=== PATIENT | female | born 1965 | race Caucasian/White ===

== ENCOUNTER 2022-05-27 15:35 | Outpatient (REF) | payer OTHER, SELFPAY ==
[2022-05-27 18:27] LABS: Uric Acid 7.5 mg/dL (2.4-5.7)
== END 2022-05-27 15:36 | disposition home or self-care (01) ==
LOC: HO.MANLDS 15:35
PROVIDERS: Visit Provider Physician Assistant
DX: M10.041 Idiopathic gout, right hand (principal)
CPT/HCPCS: 36415; 84550

== ENCOUNTER 2023-02-12 10:40 | Outpatient (REF) | payer OTHER, SELFPAY ==
[2023-02-15 13:18] LABS: Thyroglobulin Antibodies <1 IU/mL (< or = 1); Thyroid Peroxidase Antibodies 140 IU/mL (<9)
[2023-02-15 13:33] LABS: Calcium (PTHI) 8.9 mg/dL (8.6-10.4); PTHI 98 pg/mL (16-77)
== END 2023-02-12 10:41 | disposition home or self-care (01) ==
LOC: HO.MANLDS 10:40
PROVIDERS: Visit Provider Physician Assistant
DX: E03.8 Other specified hypothyroidism (principal); E83.52 Hypercalcemia
CPT/HCPCS: 36415; 82310; 83970; 84439; 84443; 86376; 86800

== ENCOUNTER 2023-03-16 11:25 | Outpatient (REF) | payer OTHER, SELFPAY ==
[2023-03-16 14:44] LABS: Free T4 (Free Thyroxine) 1.15 ng/dL (0.71-1.85); Thyroid Stimulating Hormone 0.78 uIU/mL (0.32-4.0)
[2023-03-18 01:04] LABS: Thyroid Peroxidase Antibodies 140 IU/mL (<9)
== END 2023-03-16 11:26 | disposition home or self-care (01) ==
LOC: HO.MANLDS 11:25
PROVIDERS: Visit Provider Physician Assistant
DX: E03.8 Other specified hypothyroidism (principal)
CPT/HCPCS: 36415; 84439; 84443; 86376

== ENCOUNTER 2024-01-12 18:10 | Outpatient (REF) | payer OTHER, SELFPAY | END 2024-01-12 18:11 | disposition home or self-care (01) | LOC: HO.MANLNP 18:10 | PROVIDERS: Visit Provider Physician Assistant | DX: J02.9 Acute pharyngitis, unspecified (principal) | CPT/HCPCS: 87070 ==